=== PATIENT | female | born 1975 | race Caucasian/White ===

== ENCOUNTER 2022-07-03 00:46 | Emergency (ER) | payer SELFPAY ==
[~2022-07-03] VITALS: Ht 165.1 cm; Wt 58.1 kg
--- NOTE | 2022-07-03 00:46 | NUR ---
PT JOANN MARTINEZ, PREBOOK. TAKEN TO CHAIR
[2022-07-03 00:49] VITALS: BP 147/99
--- NOTE | 2022-07-03 01:11 | NUR ---
PATIENT BIB [facility] [employer]. PATIENT EXAMINED BY . PATIENT MEDICALLY CLEARED AND RELEASED IN CUSTODY IN STABLE CONDITION. ORIGINAL PRE-BOOK FORM GIVEN TO OFFICER TANMAY.
== END 2022-07-03 01:11 ==
LOC: MED 00:46
CPT/HCPCS: 99283